=== PATIENT | male | born 1970 | race Caucasian/White ===

== ENCOUNTER 2025-05-17 20:47 | Inpatient (IN) ==
[2025-05-17] MEDS: SODIUM CHLORIDE 0.9% 1,000 ML IV STA (21:27)
[2025-05-17] MEDS: ALBUT/IPRATROP 3MG/0.5MG NEB 3 ML VIAL NEB STA (21:27)
--- NOTE | 2025-05-17 21:36 | Emergency Department Note ---
Impression & Plan NSTEMI (non-ST elevated myocardial infarction) ED Provider Note NAME: ANNABELLE DIAZ AGE: 55 SEX: M : 1970 ARRIVES VIA: Walk-In INFORMANT: Patient, ED PROVIDER(S): Daron Edward MD CHIEF COMPLAINT: Chest tightness MEDICAL DECISION MAKING: Patient presents due to concern for chest tightness. IV was established and blood work was obtained. Patient had complaint of cough the patient's initial presentation sounded infectious in etiology as the patient did receive a DuoNeb treatment as well as IV fluids. Patient's EKG without obvious ischemic changes. Patient's blood work shows a white count of 11.4 with a normal platelet count. Hemoglobin of 13.8. The patient's kidney function is unremarkable. Troponin is 7700. BioFire negative. We reviewed the patient's EKG there may be subtle changes inferiorly but not enough to call a STEMI. A repeat EKG was obtained and the patient's chest pain has improved currently 3 out of 10. Patient was ordered heparin bolus and drip as well as 324 of aspirin. I did speak with on-call outpatient services director Dr. Armando who agreed not enough to meet for STEMI criteria but does agree with heparin and aspirin. He recommended IV morphine 2 mg as well as sublingual nitro 0.4. He was given these. Upon subsequent reassessment the patient was chest pain-free. I did inform the patient of these findings as well as at bedside they are comfortable plan of care. The patient was admitted to the medicine service by Dr. Tan. Critical Care: I have personally spent 52 minutes of critical care time in direct management of this patient. This includes bedside care, interpretation of diagnostic studies, and testing, discussion with consultants, patient, and family members, and other require inpatient management activities. This 52 minutes is in excess of all separately billable procedures. Discussion w/ other healthcare providers: Dr. Armando cardiology Dr. Tan inpatient medicine service Prior /Outside records reviewed: None Differential diagnosis: Cardiac ischemia, aortic dissection, pulmonary embolism, pneumothorax, pneumonia, pericarditis, myocarditis, GERD, cholecystitis, pancreatitis, musculoskeletal, as well as other pathologies were considered. Diagnostics, as interpreted by me: ECG:Normal sinus rhythm, rate of 92, normal intervals, normal axis no ST elevations or T WI, no obvious STEMI, T wave inversion noted in lead III. Repeat EKG interpreted by myself Sinus tachycardia, rate of 101, normal intervals, normal axis, grossly unchanged from prior EKG. No obvious STEMI. Cardiac monitoring: An order was placed for continuous cardiac monitoring. The monitor shows a rate of 95 with sinus rhythm. Patient was placed on pulse oximetry Medical decision rules: Heart score Imaging studies: I informally interpreted the patient's chest x-ray does not show obvious pneumonia or pneumothorax with formal report to follow. HPI: Patient presents due to concern for chest tightness. The patient states it centralized and somewhat diffuse. The patient states that when taking a big deep breath sometimes it will radiate upward toward his neck. Patient denies any exertional component no nausea vomiting or diaphoresis. 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 The patient denies any inhalation of particulate matter. The patient states that he has had a little bit of cough but no fever no leg swelling or calf pain no history of DVT or PE. He does report that he has a history of hyperlipidemia but no prior history of heart or lung disease. Non-smoker. He denies any recent surgeries procedures or hospitalizations no recent prolonged car plane travel. PAST MEDICAL HISTORY: See Below PAST SURGICAL HISTORY: See Below SOCIAL HISTORY: See Below HOME MEDICATIONS: See Below ALLERGIES: See Below VITALS: See Below PHYSICAL EXAMINATION: GENERAL: NAD, non-toxic. EYE EXAM: Normal conjunctiva. PERRL, no anisocoria and EOM's grossly intact w/o pain. OROPHARYNX: Moist mucus membranes, grossly normal dentition. NECK: Trachea midline, no stridor. LUNGS: Clear to auscultation. Normal chest wall mechanics. HEART: NSR, no MRG. ABDOMEN: Abdomen soft, non-tender, no masses, no rebound or guarding. BACK: No CVA TTP. SKIN: No rashes and no bruising. UPPER EXTREMITIES: Upper extremities are grossly normal. LOWER EXTREMITIES: Grossly normal, no edema. Negative Homans' sign bilaterally. NEURO EXAM: Awake and alert, follows commands, no obvious facial asymmetry, normal speech, moves all 4 extremities. Past Med/Surg History Problem List (Updated 05/21/25 @ 16:13 by Daron Edward MD) Dyslipidemia, goal LDL below 70 Cardiac tamponade Pericardial effusion NSTEMI (non-ST elevated myocardial infarction) (Acute) Social History Smoking Status: Never smoker Hx Alcohol Use: No Hx Substance Use: No Preferred Language: Kinyarwanda Communication Ability: Effective Aix Administrator Required: No Beliefs That Will Affect Care: None Current Living Situation: Spouse Feels Safe at Home: Yes Assistive Devices: None Allergies Allergies Allergy/AdvReac Type Severity Reaction Status Date / Time No Known Allergies Allergy Verified 05/17/25 21:36 Home Meds Home Medications Medication Instructions Recorded Confirmed atorvastatin 20 mg tablet 20 mg PO HS 05/17/25 05/17/25 cholecalciferol (vitamin D3) 125 125 mcg PO HS 05/17/25 05/17/25 mcg (5,000 unit) tablet (Vitamin D3) levothyroxine 75 mcg tablet 75 mcg PO DAILYBB 05/17/25 05/17/25 multivitamin 1 tab PO HS 05/17/25 05/17/25 omega-3 fatty acids 1,250 mg 2,500 mg PO HS 05/17/25 05/17/25 capsule Previous Rx's Medication Instructions Recorded aspirin 325 mg tablet,delayed 325 mg PO DAILY 30 days #30 tabs 05/19/25 release (Ecotrin) colchicine 0.6 mg tablet (Colcrys) 0.6 mg PO BID 14 days #28 tabs 05/19/25 pantoprazole 40 mg tablet,delayed 40 mg PO DAILY 30 days #30 tabs 05/20/25 release (Protonix) Results & Data (ED) Vital Signs Vital Signs - 24 hr 05/17/25 20:49 05/17/25 21:13 05/17/25 21:14 Temperature 36.7 C Temperature Source Temporal Artery Scan Pulse Rate 100 H 92 H Pulse Rate [Apical] Pulse Rhythm Regular Pulse Rhythm [Apical] Pulse Strength Normal Pulse Strength [Apical] Respiratory Rate 20 Respiratory Effort / Characteristics Non-Labored Spontaneous Respiratory Depth Normal Respiratory Pattern Blood Pressure 115/86 Blood Pressure [Right Arm] Blood Pressure Mean 95 Blood Pressure Mean [Right Arm] Pulse Oximetry 97 Oxygen Delivery Method Room Air Room Air Sepsis New/Unexplained Change in Mental Status N/A Sepsis Action Taken by Nursing No Action Required 05/17/25 21:14 05/17/25 21:20 Temperature Temperature Source Pulse Rate Pulse Rate [Apical] 97 H Pulse Rhythm Pulse Rhythm [Apical] Regular Pulse Strength Pulse Strength [Apical] Normal Respiratory Rate 18 Respiratory Effort / Characteristics Non-Labored Spontaneous Respiratory Depth Normal Respiratory Pattern Regular Blood Pressure Blood Pressure [Right Arm] 116/87 Blood Pressure Mean Blood Pressure Mean [Right Arm] 96 Pulse Oximetry 98 98 Oxygen Delivery Method Room Air Room Air Sepsis New/Unexplained Change in Mental Status Sepsis Action Taken by Half-Way Medications Current Medication List: was personally reviewed by me Laboratory Data Attestation: I reviewed the patient's lab results. 05/19/25 05:38 05/19/25 05:38 Lab Results 05/17/25 05/17/25 05/17/25 Range/Units 21:05 21:19 23:05 WBC 11.42 H (4.8-10.8) K/ul RBC 4.56 L (4.70-6.10) M/uL Hgb 13.8 L (14.0-18.0) g/dl Hct 39.4 L (42.0-52.0) % MCV 86.4 (80.0-100.0) fL MCH 30.3 (25.0-34.0) pg MCHC 35.0 (32.0-36.0) g/dL RDW Std Deviation 39.7 (36.4-46.3) fL RDW Coeff of Nikia 12.6 (11.5-14.5) % Plt Count 283 (130-400) K/uL MPV 9.5 (9.4-12.4) fL Immature Gran % (Auto) 0.3 % Neut % (Auto) 59.8 % Lymph % (Auto) 26.4 % Branch % (Auto) 10.9 % Eos % (Auto) 2.3 % Baso % (Auto) 0.3 % Neut # (Auto) 6.85 H (1.40-6.50) K/uL Lymph # (Auto) 3.01 (1.20-3.40) K/uL Branch # (Auto) 1.24 H (0.11-0.59) K/uL Eos # (Auto) 0.26 (0.00-0.50) K/uL Baso # (Auto) 0.03 (0.00-0.20) K/uL Immature Gran # (Auto) 0.03 (0.01-0.20) K/uL Sodium 139 (136-145) mmol/L Potassium 3.8 (3.5-5.1) mmol/L Chloride 104 (98-107) mmol/L Carbon Dioxide 27 (21-32) mmol/L Anion Gap 8 (3-11) BUN 20 (6-23) mg/dl Creatinine 0.98 (0.6-1.4) mg/dl Est Cr Clr Drug Dosing 98.2 ml/min eGFR 91.63 BUN/Creatinine Ratio 20.4 H (10-20) Glucose 106 H (70-99(Fasting)) mg/dl Calcium 8.7 (8.6-10.3) mg/dl Total Bilirubin 0.8 (0.2-1.0) mg/dl AST 35 (13-39) U/L ALT 33 (7-52) U/L Alkaline Phosphatase 80 (34-104) U/L Troponin I High Sens 7733.8 H* 7045.3 H* (0-20) pg/ml Total Protein 7.9 (6.0-8.3) gm/dl Albumin 4.1 (3.4-5.0) gm/dl Globulin 3.8 (2.5-4.0) gm/dl Albumin/Globulin Ratio 1.1 (0.9-2) Lipase 27 (11-82) U/L Adenovirus (PCR) Not Detected (NotDetected) B. pertussis DNA (PCR) Not Detected (NotDetected) B.parapertussis DNA PCR Not Detected (NotDetected) C. pneumoniae DNA (PCR) Not Detected (NotDetected) Coronavirus OC43 (PCR) Not Detected (NotDetected) Coronavirus HKU1 (PCR) Not Detected (NotDetected) Coronavirus 229E (PCR) Not Detected (NotDetected) SARS-CoV-2 (PCR) Not Detected (NotDetected) Coronavirus NL63 (PCR) Not Detected (NotDetected) Human Metapneumovir PCR Not Detected (NotDetected) Influenza Type A (PCR) Not Detected (NotDetected) Influenza Type B (PCR) Not Detected (NotDetected) M. pneumoniae (PCR) Not Detected (NotDetected) Parainfluenza 1 (PCR) Not Detected (NotDetected) Parainfluenza 2 (PCR) Not Detected (NotDetected) Parainfluenza 3 (PCR) Not Detected (NotDetected) Parainfluenza 4 (PCR) Not Detected (NotDetected) RSV (PCR) Not Detected (NotDetected) Entero/Rhino (PCR) Not Detected (NotDetected) Administered Medications Discontinued Medications Acetaminophen (Acetaminophen 500 Mg Tab) 1,000 mg PO NOW STA Stop: 05/18/25 00:24 Last Admin: 05/18/25 00:34 Dose: 1,000 mg Documented By: PAGE Acetaminophen (Acetaminophen 325 Mg Tab) 650 mg PO Q4H PRN PRN Reason: Pain or Fever Stop: 06/17/25 01:55 Last Admin: 05/18/25 18:00 Dose: 650 mg Documented By: SABAF Albuterol (Albut/Ipratrop 3mg/0.5mg Neb 3 Ml Vial) 3 ml NEB NOW STA; Protocol Stop: 05/17/25 21:18 Last Admin: 05/17/25 21:27 Dose: 3 ml Documented By: MARITZA Aspirin (Aspirin Chew 324 Mg) 324 mg PO NOW STA Stop: 05/17/25 22:41 Last Admin: 05/17/25 22:45 Dose: 324 mg Documented By: ANANDA Aspirin (Aspirin 81 Mg Ectab) 81 mg PO DAILY SCARLETT Stop: 06/17/25 08:59 Last Admin: 05/18/25 09:12 Dose: 81 mg Documented By: ISMALE Aspirin (Aspirin 325 Mg Ectab) 325 mg PO DAILY SCARLETT Stop: 06/17/25 15:29 Last Admin: 05/19/25 09:14 Dose: 325 mg Documented By: Admin: 05/18/25 16:25 Dose: 325 mg Documented By: ISMAEL Atorvastatin Calcium (Atorvastatin 20 Mg Tab) 20 mg PO HS SCARLETT Stop: 06/17/25 20:59 Last Admin: 05/18/25 21:03 Dose: 20 mg Documented By: MARTIN Colchicine (Colchicine 0.6 Mg Tab) 0.6 mg PO BID SCARLETT Stop: 06/17/25 10:59 Last Admin: 05/19/25 09:13 Dose: 0.6 mg Documented By: Admin: 05/18/25 21:03 Dose: 0.6 mg Documented By: Admin: 05/18/25 12:17 Dose: 0.6 mg Documented By: ISMAEL Fentanyl Citrate (Fentanyl Citrate Pf 100 Mcg/2 Ml Vial) Confirm Administered Dose 100 mcg .ROUTE .STK-MED ONE Stop: 05/18/25 09:56 Last Increment: 05/18/25 10:32 Dose: 37.5 mcg Documented By: LEANA Heparin Sodium (Porcine) (Heparin Sod (Porcine) 1000 Unit/Ml) 1 units IV NOW ONE Stop: 05/17/25 22:55 Last Admin: 05/17/25 23:00 Dose: 4,000 units Documented By: MARITZA Co-signed By: ANANDA Heparin Sodium (Porcine) (Heparin (Porcine) 1000 Unit/Ml 10 Ml (Experimental Rocket Sled Mechanic Use Only)) Confirm Administered Dose 10,000 units .ROUTE .STK-MED ONE Stop: 05/18/25 09:56 Last Admin: 05/18/25 10:33 Dose: Not Given Documented By: LEANA Heparin Sodium/Dextrose (Heparin Iv Adult Wt-Based Low-Dose W/ Initial Bolus Protocol) 1 each IV NOW STA; Protocol Stop: 05/17/25 22:40 Last Admin: 05/17/25 22:48 Dose: Not Given Documented By: ANANDA Heparin Sodium/Sodium Chloride (Heparin In Nss Infusion 1000 Unit/500 Ml (2 U/Ml) Bag) Confirm Administered Dose 6,000 units IV .STK-MED ONE Stop: 05/18/25 09:48 Last Admin: 05/18/25 10:07 Dose: Not Given Documented By: LEANA Heparin Sodium/Sodium Chloride (Heparin In Nss Infusion 1000 Unit/500 Ml (2 U/Ml) Bag) Confirm Administered Dose 3,000 units IV .STK-MED ONE Stop: 05/18/25 09:56 Last Admin: 05/18/25 10:07 Dose: 3,000 units Documented By: LEANA Sodium Chloride (Nss) 1,000 mls @ 999 mls/hr IV .Q1H1M STA Stop: 05/17/25 22:17 Last Infusion: 05/17/25 22:30 Dose: Infused Documented By: Admin: 05/17/25 21:27 Dose: 999 mls/hr Documented By: MARITZA Heparin Sodium/Dextrose (Heparin 60473 Unit/500 Ml D5w) 25,000 units in 500 mls @ 19 mls/hr IV .Q24H [facility]; Protocol Stop: 06/16/25 22:59 Last Titration: 05/18/25 19:02 Dose: Infused Documented By: MARTIN Co-signed By: DASH Titration: 05/18/25 08:53 Dose: 0 units/hr, 0 mls/hr Documented By: ISMAEL Co-signed By: MARCE Titration: 05/18/25 06:52 Dose: 1,050 units/hr, 21 mls/hr Documented By: MARTIN Co-signed By: ISMAEL Admin: 05/17/25 23:02 Dose: 950 units/hr, 19 mls/hr Documented By: MARITZA Co-signed By: ANANDA Sodium Chloride (Nss) 1,000 mls @ 999 mls/hr IV .Q1H1M ONE Stop: 05/17/25 23:54 Last Infusion: 05/18/25 00:20 Dose: Infused Documented By: Admin: 05/17/25 22:58 Dose: 999 mls/hr Documented By: MARITZA Ioversol (Optiray 350) Confirm Administered Dose 1 ml .ROUTE .STK-MED ONE Stop: 05/18/25 09:57 Last Admin: 05/18/25 10:33 Dose: 80 ml Documented By: LEANA Levothyroxine Sodium (Levothyroxine Sodium 75 Mcg Tablet) 75 mcg PO DAILYBB SCARLETT Stop: 06/17/25 06:29 Last Admin: 05/19/25 06:10 Dose: 75 mcg Documented By: Admin: 05/18/25 06:45 Dose: 75 mcg Documented By: MARTIN Lidocaine HCl (Lidocaine 1% Local 20 Ml Vial) Confirm Administered Dose 40 ml .ROUTE .STK-MED ONE Stop: 05/18/25 09:47 Last Admin: 05/18/25 10:06 Dose: 40 ml Documented By: LEANA Methylprednisolone (Methylprednisolone 125 Mg/2 Ml Vial) 125 mg IV NOW STA Stop: 05/17/25 21:18 Last Admin: 05/17/25 21:31 Dose: 125 mg Documented By: MARITZA Midazolam HCl (Midazolam Hcl 1 Mg/Ml 2ml Vial) Confirm Administered Dose 2 mg .ROUTE .STK-MED ONE Stop: 05/18/25 09:56 Last Admin: 05/18/25 10:33 Dose: 2 mg Documented By: LEANA Morphine Sulfate (Morphine Sulfate 2 Mg/Ml Carp) 2 mg IV NOW STA Stop: 05/17/25 23:08 Last Admin: 05/17/25 23:38 Dose: 2 mg Documented By: PAGE Multivitamins (Multivitamin Tab) 1 tab PO HS SCARLETT Stop: 06/17/25 20:59 Last Admin: 05/18/25 21:03 Dose: 1 tab Documented By: MARTIN Nicardipine HCl (Nicardipine Hcl Inj 2.5 Mg/Ml 10 Ml Amp) Confirm Administered Dose 25 mg .ROUTE .STK-MED ONE Stop: 05/18/25 09:57 Last Admin: 05/18/25 10:08 Dose: 25 mg Documented By: LEANA Nitroglycerin (Nitroglycerin Sl 0.4 Mg/Tab Tab) 0.4 mg SL NOW STA Stop: 05/17/25 23:08 Last Admin: 05/17/25 23:38 Dose: 0.4 mg Documented By: PAGE Vitamin D (Cholecalciferol 125 Mcg (5,000 Units) Tab) 125 mcg PO HS SCARLETT Stop: 06/17/25 20:59 Last Admin: 05/18/25 21:03 Dose: 125 mcg Documented By: MARTIN Imaging Data Radiologist's Impression: Chest X-Ray 05/17/25 21:17 Exam(s): XR CXR 1 VIEW EXAM: XR Chest, 1 View CLINICAL HISTORY: Chest pain, nonspecific. TECHNIQUE: Frontal view of the chest. COMPARISON: No relevant prior studies available. FINDINGS: Lungs: No infiltrate. Hypoventilation with mild bibasilar atelectasis. No CHF. Pleural space: No pleural effusion. No pneumothorax. Heart: Unremarkable. No cardiomegaly. Mediastinum: Unremarkable. Normal mediastinal contour. Bones/joints: Unremarkable. No acute fracture. IMPRESSION: Hypoventilation with mild bibasilar atelectasis. Electronically signed by: Kirby Baum M.D. 05/18/25 00:08 AM Discharge Plan Visit Data Chief Complaint: Cardiac Assessment Stated Complaint: TIGHTNESS IN CHEST, COUGH, SOB ED Provider: Daron Edward Discharge Problem: NSTEMI (non-ST elevated myocardial infarction) Patient Disposition: Admitted As Inpatient Condition: Good Discharge Instructions Interventions: ED Discharge Assessment Last Done: 05/18/25 01:20
[2025-05-17 21:42] LABS: Hematocrit (blood only) 39.4 % (42.0-52.0); Hemoglobin 13.8 g/dl (14.0-18.0); Immature Granulocytes # (auto) 0.03 K/uL (0.01-0.20); Immature Granulocytes % (auto) 0.3 %; Mean Corpuscular Hemoglobin 30.3 pg (25.0-34.0); Mean Corpuscular Volume 86.4 fL (80.0-100.0); Platelet Count 283 K/uL (130-400); RDW Standard Deviation 39.7 fL (36.4-46.3); Red Blood Count 4.56 M/uL (4.70-6.10); White Blood Count 11.42 K/ul (4.8-10.8)
[2025-05-17 22:24] LABS: Alanine Aminotransferase 33.0 U/L (7-52); Albumin Globulin Ratio 1.1 (0.9-2); Alkaline Phosphatase 80.0 U/L (34-104); Anion Gap 8.0 (3-11); Bilirubin,Total 0.8 mg/dl (0.2-1.0); Blood Urea Nitrogen 20.0 mg/dl (6-23); Calcium 8.7 mg/dl (8.6-10.3); Carbon Dioxide 27.0 mmol/L (21-32); Chloride 104.0 mmol/L (98-107); Creatinine Clr Calc Pharmacy 98.2 ml/min; Globulin 3.8 gm/dl (2.5-4.0); Glucose 106.0 mg/dl (70-99(Fasting)); Lipase 27.0 U/L (11-82); Potassium 3.8 mmol/L (3.5-5.1); Sodium 139.0 mmol/L (136-145); Total Protein 7.9 gm/dl (6.0-8.3)
[2025-05-17 22:39] LABS: Chlamydia pneumoniae PCR Not Detected (NotDetected); Coronavirus 229E PCR Not Detected (NotDetected); Coronavirus CoV-2 (COVID19)PCR Not Detected (NotDetected); Coronavirus HKU1 PCR Not Detected (NotDetected); Coronavirus NL63 PCR Not Detected (NotDetected); Coronavirus OC43PCR Not Detected (NotDetected); Human Metapneumovirus PCR Not Detected (NotDetected); Parainfluenza Virus 1 PCR Not Detected (NotDetected); Parainfluenza Virus 2 PCR Not Detected (NotDetected); Parainfluenza Virus 3 PCR Not Detected (NotDetected); Parainfluenza Virus 4 PCR Not Detected (NotDetected); Respiratory Syncytial VirusPCR Not Detected (NotDetected); Rhinovirus/Enterovirus PCR Not Detected (NotDetected)
[2025-05-17] MEDS: ASPIRIN CHEW 324 MG PO STA (22:45)
[2025-05-17] MEDS: Heparin IV Adult Wt-Based Low-Dose w/ INITIAL Bolus Protocol IV STA (22:48)
[2025-05-17] MEDS: SODIUM CHLORIDE 0.9% 1,000 ML IV ONE (22:58)
[2025-05-17] MEDS: HEPARIN SOD (PORCINE) 1000 UNIT/ML IV ONE (23:00)
[2025-05-17] MEDS: HEPARIN 25000 UNIT/500 ML D5W 25,000 UNITS/500 ML BAG IV SCH (23:02)
[2025-05-17] MEDS: NITROGLYCERIN SL 0.4 MG/TAB TAB SL STA (23:38)
[2025-05-17] MEDS: MoRPHine SULFATE 2 MG/ML CARP IV STA (23:38)
--- NOTE | 2025-05-18 00:09 | XRay Report ---
Exam(s): XR CXR 1 VIEW EXAM: XR Chest, 1 View CLINICAL HISTORY: Chest pain, nonspecific. TECHNIQUE: Frontal view of the chest. COMPARISON: No relevant prior studies available. FINDINGS: Lungs: No infiltrate. Hypoventilation with mild bibasilar atelectasis. No CHF. Pleural space: No pleural effusion. No pneumothorax. Heart: Unremarkable. No cardiomegaly. Mediastinum: Unremarkable. Normal mediastinal contour. Bones/joints: Unremarkable. No acute fracture. IMPRESSION: Hypoventilation with mild bibasilar atelectasis. Electronically signed by: Kirby Baum M.D. 05/18/25 00:08 AM
[2025-05-18] MEDS: ACETAMINOPHEN 500 MG TAB PO STA (00:34)
--- NOTE | 2025-05-18 00:36 | History & Physical Report ---
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 Pain started yesterday afternoon. Pain located in middle of the chest. When he takes deep breath pain radiates into his throat. He had some shortness of breath on exertion. He had an episode of fluttering of the heart. Denies any nausea. No dizziness. No sweating. Pain is about 3/10 by severity. Took nitro in ER did not help the pain but caused headache. Received morphine but seems not helped much. Pain is more or less constant. On exertion he had some shortness of breath. No blurred vision. No headache. No runny nose or sore throat. Having some dry cough. Appetite is okay. No abdominal pain. Normal bowel and bladder movements. Denies any blood in the stools or black stools. Denies any hematuria. Last Wednesday had some bug bites not sure if they are ticks. Currently afebrile. Patient is from [place]. Non-ST elevated [place] Presents with chest pain. Initial troponin 7733 and repeat is [address] changes in inferior leads Received aspirin and started on IV heparin Will follow serial cardiac enzymes and echo N.p.o. Telemetry Cardiac consult for further recommendations History of hyperlipidemia Continue home statin for now Will follow lipid profile Hypothyroidism On Synthyroid Will follow TSH Impaired fasting glucose Will check HbA1c levels Recent bug bite Will check Lyme screen DVT prophylaxis On IV heparin Disposition Telemetry Full code. 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 Pain started yesterday afternoon. Pain located in middle of the chest. When he takes deep breath pain radiates into his throat. He had some shortness of breath on exertion. He had an episode of fluttering of the heart. Denies any nausea. No dizziness. No s weating. Pain is about 3/10 by severity. Took nitro in ER did not help the pain but caused headache. Received morphine but seems not helped much. Pain is more or less constant. On exertion he had some shortness of breath. No blurred vision. No headache. No runny nose or sore throat. Having some dry cough. Appetite is okay. No abdominal pain. Normal bowel and bladder movements. Denies any blood in the stools or black stools. Denies any hematuria. Last Wednesday had some bug bites not sure if they are ticks. Currently afebrile. Patient is from [place]. Past medical history as mentioned above. Past surgical history. Inguinal hernia repair. Social history. No smoking. Alcohol occasional. Family history. Father had heart valve repair. Sister had heart disease. Allergies Allergy/AdvReac Type Severity Reaction Status Date / Time No Known Allergies Allergy Verified 05/17/25 21:36 Home Medications Medication Instructions Recorded Confirmed Type atorvastatin 20 mg tablet 20 mg PO HS 05/17/25 05/17/25 History cholecalciferol (vitamin D3) 125 125 mcg PO HS 05/17/25 05/17/25 History mcg (5,000 unit) tablet (Vitamin D3) levothyroxine 75 mcg tablet 75 mcg PO DAILYBB 05/17/25 05/17/25 History multivitamin 1 tab PO HS 05/17/25 05/17/25 History omega-3 fatty acids 1,250 mg 2,500 mg PO HS 05/17/25 05/17/25 History capsule zinc acetate 50 mg (zinc) capsule 50 mg PO HS 05/17/25 05/17/25 History Past Med/Surg History Problem List (Updated 05/18/25 @ 00:41 by Jaxson Tan MD) NSTEMI (non-ST elevated myocardial infarction) Social History Smoking Status: Never smoker Hx Alcohol Use: No Hx Substance Use: No Preferred Language: Turkmen Communication Ability: Effective [employer] Artistic Director Required: No Beliefs That Will Affect Care: None Current Living Situation: Spouse Other Information That Helps Us Care for You: No Feels Safe at Home: Yes Safety Concerns: Feels Safe At This Time Assistive Devices: Glasses Review of Systems Review of Systems: All systems reviewed & are unremarkable except as noted in HPI & below Physical Exam Physical Exam: General-Not in distress Head- atraumatic Eyes- PERRL. ENT- oropharynx clear Neck- supple, no JVD. Lungs- clear to auscultation no wheezing or crackles Heart- regular rate and rhythm; no murmur, no gallop. Abdomen- normal bowel sounds, soft, nontender, no distension Extremities- no pretibial edema, no erythema seen Neuro- alert, oriented; PERRL, no facial palsy; no dysarthria; moves extremities Skin- small bug bite rash seen on right posterior leg above knee medially Results & Data Results & Data Vital Signs (Past 12 Hours) Vital Signs Temp Pulse Pulse Resp BP BP Pulse Ox 05/17/25 23:00 103 H 22 95 05/17/25 22:57 101 H 24 95 05/17/25 22:21 97 H 23 94 05/17/25 22:09 89 28 H 94 05/17/25 22:03 117/90 05/17/25 22:03 117/90 05/17/25 21:39 95 H 13 100 05/17/25 21:20 98 05/17/25 21:14 97 H 18 116/87 98 05/17/25 21:14 05/17/25 21:13 92 H 05/17/25 21:12 101 H 25 H 97 05/17/25 20:49 36.7 C 100 H 20 115/86 97 O2 Del Method 05/17/25 23:00 05/17/25 22:57 05/17/25 22:21 05/17/25 22:09 05/17/25 22:03 05/17/25 22:03 05/17/25 21:39 05/17/25 21:20 Room Air 05/17/25 21:14 Room Air 05/17/25 21:14 Room Air 05/17/25 21:13 05/17/25 21:12 05/17/25 20:49 Room Air Diagnostic Findings Laboratory Results WBC 11.42 K/ul (4.8-10.8) H 05/17/25 21:05 RBC 4.56 M/uL (4.70-6.10) L 05/17/25 21:05 Hgb 13.8 g/dl (14.0-18.0) L 05/17/25 21:05 Hct 39.4 % (42.0-52.0) L 05/17/25 21:05 MCV 86.4 fL (80.0-100.0) 05/17/25 21:05 MCH 30.3 pg (25.0-34.0) 05/17/25 21:05 MCHC 35.0 g/dL (32.0-36.0) 05/17/25 21:05 RDW Std Deviation 39.7 fL (36.4-46.3) 05/17/25 21:05 RDW Coeff of Nikia 12.6 % (11.5-14.5) 05/17/25 21:05 Plt Count 283 K/uL (130-400) 05/17/25 21:05 MPV 9.5 fL (9.4-12.4) 05/17/25 21:05 Immature Gran % (Auto) 0.3 % 05/17/25 21:05 Neut % (Auto) 59.8 % 05/17/25 21:05 Lymph % (Auto) 26.4 % 05/17/25 21:05 Rock % (Auto) 10.9 % 05/17/25 21:05 Eos % (Auto) 2.3 % 05/17/25 21:05 Baso % (Auto) 0.3 % 05/17/25 21:05 Neut # (Auto) 6.85 K/uL (1.40-6.50) H 05/17/25 21:05 Lymph # (Auto) 3.01 K/uL (1.20-3.40) 05/17/25 21:05 Rock # (Auto) 1.24 K/uL (0.11-0.59) H 05/17/25 21:05 Eos # (Auto) 0.26 K/uL (0.00-0.50) 05/17/25 21:05 Baso # (Auto) 0.03 K/uL (0.00-0.20) 05/17/25 21:05 Immature Gran # (Auto) 0.03 K/uL (0.01-0.20) 05/17/25 21:05 Sodium 139 mmol/L (136-145) 05/17/25 21:05 Potassium 3.8 mmol/L (3.5-5.1) 05/17/25 21:05 Chloride 104 mmol/L (98-107) 05/17/25 21:05 Carbon Dioxide 27 mmol/L (21-32) 05/17/25 21:05 Anion Gap 8 (3-11) 05/17/25 21:05 BUN 20 mg/dl (6-23) 05/17/25 21:05 Creatinine 0.98 mg/dl (0.6-1.4) 05/17/25 21:05 Est Cr Clr Drug Dosing 98.2 ml/min 05/17/25 21:05 eGFR 91.63 05/17/25 21:05 BUN/Creatinine Ratio 20.4 (10-20) H 05/17/25 21:05 Glucose 106 mg/dl (70-99(Fasting)) H 05/17/25 21:05 Calcium 8.7 mg/dl (8.6-10.3) 05/17/25 21:05 Total Bilirubin 0.8 mg/dl (0.2-1.0) 05/17/25 21:05 AST 35 U/L (13-39) 05/17/25 21:05 ALT 33 U/L (7-52) 05/17/25 21:05 Alkaline Phosphatase 80 U/L (34-104) 05/17/25 21:05 Troponin I High Sens 7045.3 pg/ml (0-20) H* 05/17/25 23:05 Total Protein 7.9 gm/dl (6.0-8.3) 05/17/25 21:05 Albumin 4.1 gm/dl (3.4-5.0) 05/17/25 21:05 Globulin 3.8 gm/dl (2.5-4.0) 05/17/25 21:05 Albumin/Globulin Ratio 1.1 (0.9-2) 05/17/25 21:05 Lipase 27 U/L (11-82) 05/17/25 21:05 Adenovirus (PCR) Not Detected (NotDetected) 05/17/25 21:19 B. pertussis DNA (PCR) Not Detected (NotDetected) 05/17/25 21:19 B.parapertussis DNA PCR Not Detected (NotDetected) 05/17/25 21:19 C. pneumoniae DNA (PCR) Not Detected (NotDetected) 05/17/25 21:19 Coronavirus OC43 (PCR) Not Detected (NotDetected) 05/17/25 21:19 Coronavirus HKU1 (PCR) Not Detected (NotDetected) 05/17/25 21:19 Coronavirus 229E (PCR) Not Detected (NotDetected) 05/17/25 21:19 SARS-CoV-2 (PCR) Not Detected (NotDetected) 05/17/25 21:19 Coronavirus NL63 (PCR) Not Detected (NotDetected) 05/17/25 21:19 Human Metapneumovir PCR Not Detected (NotDetected) 05/17/25 21:19 Influenza Type A (PCR) Not Detected (NotDetected) 05/17/25 21:19 Influenza Type B (PCR) Not Detected (NotDetected) 05/17/25 21:19 M. pneumoniae (PCR) Not Detected (NotDetected) 05/17/25 21:19 Parainfluenza 1 (PCR) Not Detected (NotDetected) 05/17/25 21:19 Parainfluenza 2 (PCR) Not Detected (NotDetected) 05/17/25 21:19 Parainfluenza 3 (PCR) Not Detected (NotDetected) 05/17/25 21:19 Parainfluenza 4 (PCR) Not Detected (NotDetected) 05/17/25 21:19 RSV (PCR) Not Detected (NotDetected) 05/17/25 21:19 Entero/Rhino (PCR) Not Detected (NotDetected) 05/17/25 21:19 Impressions Chest X-Ray 05/17/25 21:17 Exam(s): XR CXR 1 VIEW EXAM: XR Chest, 1 View CLINICAL HISTORY: Chest pain, nonspecific. TECHNIQUE: Frontal view of the chest. COMPARISON: No relevant prior studies available. FINDINGS: Lungs: No infiltrate. Hypoventilation with mild bibasilar atelectasis. No CHF. Pleural space: No pleural effusion. No pneumothorax. Heart: Unremarkable. No cardiomegaly. Mediastinum: Unremarkable. Normal mediastinal contour. Bones/joints: Unremarkable. No acute fracture. IMPRESSION: Hypoventilation with mild bibasilar atelectasis. Electronically signed by: Kirby Baum M.D. 05/18/25 00:08 AM ECG Additional Comments: ECG. Normal sinus rhythm with a rate of 92. ST changes in inferior leads. QTc 432. Code Status & VTE Plan VTE Prophylaxis Plan VTE Prophylaxis will be ordered: Yes
[2025-05-18] MEDS ORDERED: NITROGLYCERIN SL 0.4 MG/TAB TAB SL PRN (01:56)
[2025-05-18] MEDS ORDERED: POLYETHYLENE (MIRALAX) 17 GM PACK PO PRN (01:56)
[2025-05-18] MEDS ORDERED: MoRPHine SULFATE 2 MG/ML CARP IV PRN (01:56)
[2025-05-18 06:04] LABS: Hematocrit (blood only) 34.8 % (42.0-52.0); Hemoglobin 11.7 g/dl (14.0-18.0); Immature Granulocytes # (auto) 0.03 K/uL (0.01-0.20); Immature Granulocytes % (auto) 0.4 %; Mean Corpuscular Hemoglobin 28.8 pg (25.0-34.0); Mean Corpuscular Volume 85.7 fL (80.0-100.0); Platelet Count 226 K/uL (130-400); RDW Standard Deviation 39.0 fL (36.4-46.3); Red Blood Count 4.06 M/uL (4.70-6.10); White Blood Count 6.84 K/ul (4.8-10.8)
[2025-05-18 06:25] LABS: Anion Gap 6.0 (3-11); Blood Urea Nitrogen 18.0 mg/dl (6-23); Calcium 7.9 mg/dl (8.6-10.3); Carbon Dioxide 23.0 mmol/L (21-32); Chloride 108.0 mmol/L (98-107); Cholesterol 99.0 mg/dl (0-200); Creatinine Clr Calc Pharmacy 128.3 ml/min; Glucose 216.0 mg/dl (70-99(Fasting)); HDL Cholesterol 40.0 mg/dl; Magnesium 2.0 mg/dl (1.7-2.4); Potassium 4.1 mmol/L (3.5-5.1); Sodium 137.0 mmol/L (136-145); Triglycerides 58.0 mg/dl (0-150)
[2025-05-18 06:42] LABS: ANTI-Xa, UFH(UnfractionatedHep 0.20 IU/ml (0.3-0.7)
[2025-05-18] MEDS: LEVOTHYROXINE SODIUM 75 MCG TABLET PO SCH (06:45)
[2025-05-18 07:10] LABS: Hemoglobin A1C 6.1 % (4.5-5.6)
[2025-05-18] MEDS: ASPIRIN 81 MG ECTAB PO SCH (09:12)
[2025-05-18 09:18] LABS: Thyroid Stimulating Hormone 0.911 uIu/ml (0.300-4.500)
--- NOTE | 2025-05-18 09:21 | Cardiology Consultation ---
Date of Consultation May 18, 2025 Assessment & Plan (1) NSTEMI (non-ST elevated myocardial infarction): (2) Pericardial effusion: (3) Cardiac tamponade: (4) Dyslipidemia, goal LDL below 70: Plan 55-year-old male admitted with NSTEMI with echocardiograph evidence of post erior, lateral, inferior hypokinesis suggesting left circumflex or RCA territory ischemia. Myopericarditis is also a consideration given fevers and possible tickborne illness. Troponin is trending downward. Chest pain-free this morning. Echocardiogram also reveals a small circumferential pericardial effusion. Etiology unclear at this time however may be related to Post-[place] state or possible tickborne illness with recent exposure as noted above. Recommend left heart catheterization with coronary angiography for further assessment. Further evaluation with bedside echocardiogram and possible pericardiocentesis will be performed at time of cardiac catheterization. Case discussed with interventional cardiology. IV heparin placed on hold in anticipation of procedure. Will avoid IV vasodilators at this time due to borderline hypotension and evidence of tamponade. Jasiel Browning DO [facility] I spent a total of 80 minutes on the date of service in preparation, delivery, and documentation of the care provided to this patient, excluding any time spent in the performance of separately billed services. History of Present Illness Reason for Consultation: NSTEMI Requesting Physician: Dr. Tan Attending Physician: Yoni Nails MD History of Present Illness 55-year-old male presents to the emergency department with chest discomfort. Pain began Wednesday morning while at work. Describes a heaviness and tightness which persisted throughout the day. His discomfort waxed and waned over the next 24 hours. Noting palpitations and discomfort when exerting himself. He came to the ER for further evaluation and treatment last evening 05/17/2025. Initial troponin 7733 trending down to 1708. Echocardiogram demonstrating posterior, lateral, and inferior hypokinesis suggesting RC circumflex territory ischemic heart disease. There is a small circumferential pericardial effusion with evidence of tamponade physiology. Pain-free this a.m. Hemodynamically stable without chest pain, hypotension, or tachycardia. Telemetry reveals sinus rhythm. Allergies Allergy/AdvReac Type Severity Reaction Status Date / Time No Known Allergies Allergy Verified 05/17/25 21:36 Home Medications Medication Instructions Recorded Confirmed Type atorvastatin 20 mg tablet 20 mg PO HS 05/17/25 05/17/25 History cholecalciferol (vitamin D3) 125 125 mcg PO HS 05/17/25 05/17/25 History mcg (5,000 unit) tablet (Vitamin D3) levothyroxine 75 mcg tablet 75 mcg PO DAILYBB 05/17/25 05/17/25 History multivitamin 1 tab PO HS 05/17/25 05/17/25 History omega-3 fatty acids 1,250 mg 2,500 mg PO HS 05/17/25 05/17/25 History capsule zinc acetate 50 mg (zinc) capsule 50 mg PO HS 05/17/25 05/17/25 History Patient History Social History Smoking Status: Never smoker Hx Alcohol Use: No Hx Substance Use: No Preferred Language: Syriac Communication Ability: Effective Marketing Executive Required: No Beliefs That Will Affect Care: None Current Living Situation: Spouse Other Information That Helps Us Care for You: No Feels Safe at Home: Yes Safety Concerns: Feels Safe At This Time Assistive Devices: Glasses Review of Systems Review of Systems: All systems reviewed & are unremarkable except as noted in Subjective Physical Exam Constitutional: well nourished; no acute distress Respiratory: no respiratory distress, no labored breathing and no retractions Auscultation: no crackles, no rales, no rhonchi and no wheezes Cardiovascular: Rate/Rhythm: regular rate and regular rhythm Heart Sounds: normal S1 and normal S2; no murmur Vessels: femoral pulses present and radial pulses present; no JVD and no carotid bruit Extremities: no edema Gastrointestinal (Abdomen): Inspection/Auscultation: abdomen normal to inspection and normal bowel sounds; abdomen not distended Percussion/Palpation: abdomen soft; abdomen nontender, no guarding and abdomen not rigid Neurologic: CN's II-XI intact bilaterally and moves all extremities Results & Data Vital Signs (Past 12 Hours) Vital Signs Temp Pulse Pulse Resp BP BP Pulse Ox 05/18/25 07:52 05/18/25 07:18 36.3 C L 74 18 120/78 95 05/18/25 04:02 36.6 C 88 18 95/63 L 93 05/18/25 02:06 36.6 C 93 H 18 107/71 92 05/18/25 01:20 05/18/25 01:15 102/81 05/18/25 01:09 93 H 16 94 05/18/25 01:01 92 H 05/18/25 01:00 107/79 05/18/25 00:57 94 H 21 93 05/18/25 00:51 92 H 24 93 05/18/25 00:45 109/84 05/18/25 00:45 109/84 05/18/25 00:39 95 H 21 94 05/18/25 00:30 97 H 21 94 05/18/25 00:30 106/82 05/18/25 00:30 106/82 05/18/25 00:24 97 H 21 94 05/18/25 00:20 105/83 05/18/25 00:06 102 H 22 94 05/18/25 00:03 100 H 19 94 05/18/25 00:00 113/80 05/18/25 00:00 113/80 05/17/25 23:57 103 H 25 H 93 05/17/25 23:45 105/84 05/17/25 23:37 110/91 05/17/25 23:37 110/91 05/17/25 23:30 98 H 18 96 05/17/25 23:21 101 H 24 94 05/17/25 23:00 103 H 22 95 05/17/25 22:57 101 H 24 95 05/17/25 22:21 97 H 23 94 05/17/25 22:09 89 28 H 94 05/17/25 22:03 117/90 05/17/25 22:03 117/90 05/17/25 21:39 95 H 13 100 05/17/25 21:20 98 O2 Del Method 05/18/25 07:52 Room Air 05/18/25 07:18 Room Air 05/18/25 04:02 Room Air 05/18/25 02:06 Room Air 05/18/25 01:20 Room Air 05/18/25 01:15 05/18/25 01:09 05/18/25 01:01 05/18/25 01:00 05/18/25 00:57 05/18/25 00:51 05/18/25 00:45 05/18/25 00:45 05/18/25 00:39 05/18/25 00:30 05/18/25 00:30 05/18/25 00:30 05/18/25 00:24 05/18/25 00:20 05/18/25 00:06 05/18/25 00:03 05/18/25 00:00 05/18/25 00:00 05/17/25 23:57 05/17/25 23:45 05/17/25 23:37 05/17/25 23:37 05/17/25 23:30 05/17/25 23:21 05/17/25 23:00 05/17/25 22:57 05/17/25 22:21 05/17/25 22:09 05/17/25 22:03 05/17/25 22:03 05/17/25 21:39 05/17/25 21:20 Room Air Laboratory Results Cardiac Enzymes 05/17/25 05/17/25 05/18/25 Range/Units 21:05 23:05 05:15 AST 35 (13-39) U/L Troponin I High Sens 7733.8 H* 7045.3 H* 1708.1 H* D (0-20) pg/ml Lipids 05/18/25 Range/Units 05:15 Triglycerides 58 (0-150) mg/dl Cholesterol 99 (0-200) mg/dl HDL Cholesterol 40 mg/dl Cholesterol/HDL Ratio 2.5 (0-5) CBC 05/17/25 05/18/25 Range/Units 21:05 05:15 WBC 11.42 H 6.84 (4.8-10.8) K/ul RBC 4.56 L 4.06 L (4.70-6.10) M/uL Hgb 13.8 L 11.7 L (14.0-18.0) g/dl Hct 39.4 L 34.8 L (42.0-52.0) % Plt Count 283 226 (130-400) K/uL Neut # (Auto) 6.85 H 5.53 (1.40-6.50) K/uL Lymph # (Auto) 3.01 1.16 L (1.20-3.40) K/uL [place] # (Auto) 1.24 H 0.10 L (0.11-0.59) K/uL Eos # (Auto) 0.26 0.02 (0.00-0.50) K/uL Baso # (Auto) 0.03 0.00 (0.00-0.20) K/uL Comprehensive Metabolic Panel 05/17/25 05/18/25 Range/Units 21:05 05:15 Sodium 139 137 (136-145) mmol/L Potassium 3.8 4.1 (3.5-5.1) mmol/L Chloride 104 108 H (98-107) mmol/L Carbon Dioxide 27 23 (21-32) mmol/L BUN 20 18 (6-23) mg/dl Creatinine 0.98 0.75 (0.6-1.4) mg/dl Glucose 106 H 216 H (70-99(Fasting)) mg/dl Calcium 8.7 7.9 L (8.6-10.3) mg/dl AST 35 (13-39) U/L ALT 33 (7-52) U/L Alkaline Phosphatase 80 (34-104) U/L Total Protein 7.9 (6.0-8.3) gm/dl Albumin 4.1 (3.4-5.0) gm/dl Intake and Output 05/17/25 05/18/25 05/18/25 22:59 06:59 14:59 Intake Total 1000 / 2148.833 1148.833 / 2148.833 42.35 / 42.35 Balance 1000 / 2148.833 1148.833 / 2148.833 42.35 / 42.35 Intake: IV 1000 / 2148.833 1148.833 / 2148.833 42.35 / 42.35 Heparin 71944 Unit/500 ml D5w 148.833 / 148.833 42.35 / 42.35 25,000 units In 500 ml @ 950 UNITS/HR 19 mls/hr IV .Q24H [facility] Rx#:[id number] Sodium Chloride 0.9% 1,000 ml @ 1000 / 2000 1000 / 2000 999 mls/hr IV .Q1H1M ONE Rx#: [id number] Other: Other Intake Source npo Weight 91.9 kg 91.9 kg Weight Measurement Method Built in [facility] Care Time/CCT Total # of Minutes Spent Total Time Spent with Patient: Total time spent is greater than 50% in coordination of care (as documented) at patient's floor/unit and/or counseling patient: Coding Level of Care Code 47368 IN/OBS CONSULT LVL 5,80M Diagnoses NSTEMI (non-ST elevated myocardial infarction) I21.4 Pericardial effusion I31.39 Cardiac tamponade I31.4 Dyslipidemia, goal LDL below 70 E78.5
--- NOTE | 2025-05-18 09:23 | Pre Anesthesia Assessment ---
Date of Service May 18, 2025 Pre Sedation Assessment Vital Signs Temp Pulse Pulse Pulse Resp BP BP 05/18/25 09:31 36.7 C 95 H 18 132/96 05/18/25 07:52 05/18/25 07:18 36.3 C L 74 18 120/78 05/18/25 04:02 36.6 C 88 18 95/63 L 05/18/25 02:06 36.6 C 93 H 18 107/71 05/18/25 01:20 05/18/25 01:15 102/81 05/18/25 01:09 93 H 16 05/18/25 01:01 92 H 05/18/25 01:00 107/79 05/18/25 00:57 94 H 21 05/18/25 00:51 92 H 24 05/18/25 00:45 109/84 05/18/25 00:45 109/84 05/18/25 00:39 95 H 21 05/18/25 00:30 97 H 21 05/18/25 00:30 106/82 05/18/25 00:30 106/82 05/18/25 00:24 97 H 21 05/18/25 00:20 105/83 05/18/25 00:06 102 H 22 05/18/25 00:03 100 H 19 05/18/25 00:00 113/80 05/18/25 00:00 113/80 05/17/25 23:57 103 H 25 H 05/17/25 23:45 105/84 05/17/25 23:37 110/91 05/17/25 23:37 110/91 05/17/25 23:30 98 H 18 05/17/25 23:21 101 H 24 05/17/25 23:00 103 H 22 05/17/25 22:57 101 H 24 05/17/25 22:21 97 H 23 05/17/25 22:09 89 28 H 05/17/25 22:03 117/90 05/17/25 22:03 117/90 05/17/25 21:39 95 H 13 05/17/25 21:20 05/17/25 21:14 97 H 18 116/87 05/17/25 21:14 05/17/25 21:13 92 H 05/17/25 21:12 101 H 25 H 05/17/25 20:49 36.7 C 100 H 20 115/86 Pulse Ox O2 Del Method 05/18/25 09:31 97 Room Air 05/18/25 07:52 Room Air 05/18/25 07:18 95 Room Air 05/18/25 04:02 93 Room Air 05/18/25 02:06 92 Room Air 05/18/25 01:20 Room Air 05/18/25 01:15 05/18/25 01:09 94 05/18/25 01:01 05/18/25 01:00 05/18/25 00:57 93 05/18/25 00:51 93 05/18/25 00:45 05/18/25 00:45 05/18/25 00:39 94 05/18/25 00:30 94 05/18/25 00:30 05/18/25 00:30 05/18/25 00:24 94 05/18/25 00:20 05/18/25 00:06 94 05/18/25 00:03 94 05/18/25 00:00 05/18/25 00:00 05/17/25 23:57 93 05/17/25 23:45 05/17/25 23:37 05/17/25 23:37 05/17/25 23:30 96 05/17/25 23:21 94 05/17/25 23:00 95 05/17/25 22:57 95 05/17/25 22:21 94 05/17/25 22:09 94 05/17/25 22:03 05/17/25 22:03 05/17/25 21:39 100 05/17/25 21:20 98 Room Air 05/17/25 21:14 98 Room Air 05/17/25 21:14 Room Air 05/17/25 21:13 05/17/25 21:12 97 05/17/25 20:49 97 Room Air Cardiovascular + regular rate and + regular rhythm + S1 normal and + S2 normal; no murmur no JVD and no carotid bruit no edema Respiratory + respiratory effort normal; no respiratory distress, no labored breathing and no retractions no crackles, no rales, no rhonchi and no wheezes Pre-Sedation Airway Assessment Smoking Status: Never smoker Hx Sleep Apnea: No Hx Difficult Intubation: No Short, Thick Neck: No Thyromental Distance: < 3.5 Finger Breadths Oral Cavity: + WNL Mallampati Class: II ASA: ASA4 NPO Status Date of Last Intake of Fluids: 05/17/25 Date of Last Intake of Solid Food: 05/17/25 Procedure Planning Contraindications for Sedation: none Current Medications Reviewed: No Notes The planned sedation has been discussed with the patient. Informed Consent was obtained. I have identified the patient, determined the appropriateness of sedation and have assessed the patient immediately prior to the procedure. All medicine(s) and interventions are by my order.
[2025-05-18] MEDS: LIDOCAINE 1% LOCAL 20 ML VIAL ONE (10:06)
[2025-05-18] MEDS: OPTIRAY 350 ONE (10:33)
[2025-05-18] MEDS: MIDAZOLAM HCL 1 MG/ML 2ML VIAL ONE (10:33)
[2025-05-18] MEDS: HEPARIN (PORCINE) 1000 UNIT/ML 10 ML (CATH LAB USE ONLY) ONE (10:33)
--- NOTE | 2025-05-18 11:04 | Post Anesthesia Assessment ---
Date of Service May 18, 2025 Post Sedation Assessment Vital Signs Temp Pulse Pulse Pulse Resp BP BP 05/18/25 10:50 83 18 140/103 H 05/18/25 09:31 36.7 C 95 H 18 05/18/25 07:52 05/18/25 07:18 36.3 C L 74 18 05/18/25 04:02 36.6 C 88 18 05/18/25 02:06 36.6 C 93 H 18 05/18/25 01:20 05/18/25 01:15 102/81 05/18/25 01:09 93 H 16 05/18/25 01:01 92 H 05/18/25 01:00 107/79 05/18/25 00:57 94 H 21 05/18/25 00:51 92 H 24 05/18/25 00:45 109/84 05/18/25 00:45 109/84 05/18/25 00:39 95 H 05/18/25 00:30 97 H 21 05/18/25 00:30 106/82 05/18/25 00:30 106/82 05/18/25 00:24 97 H 05/18/25 00:20 105/83 05/18/25 00:06 102 H 22 05/18/25 00:03 100 H 19 05/18/25 00:00 113/80 05/18/25 00:00 113/80 05/17/25 23:57 103 H 25 H 05/17/25 23:45 105/84 05/17/25 23:37 110/91 05/17/25 23:37 110/91 05/17/25 23:30 98 H 18 05/17/25 23:21 101 H 24 05/17/25 23:00 103 H 22 05/17/25 22:57 101 H 24 05/17/25 22:21 97 H 23 05/17/25 22:09 89 28 H 05/17/25 22:03 117/90 05/17/25 22:03 117/90 05/17/25 21:39 95 H 13 05/17/25 21:20 05/17/25 21:14 97 H 18 05/17/25 21:14 05/17/25 21:13 92 H 05/17/25 21:12 101 H 25 H 05/17/25 20:49 36.7 C 100 H 20 115/86 BP Pulse Ox O2 Del Method 05/18/25 10:50 94 Room Air 05/18/25 09:31 132/96 97 Room Air 05/18/25 07:52 Room Air 05/18/25 07:18 120/78 95 Room Air 05/18/25 04:02 95/63 L 93 Room Air 05/18/25 02:06 107/71 92 Room Air 05/18/25 01:20 Room Air 05/18/25 01:15 05/18/25 01:09 94 05/18/25 01:01 05/18/25 01:00 05/18/25 00:57 93 05/18/25 00:51 93 05/18/25 00:45 05/18/25 00:45 05/18/25 00:39 94 05/18/25 00:30 94 05/18/25 00:30 05/18/25 00:30 05/18/25 00:24 94 05/18/25 00:20 05/18/25 00:06 94 05/18/25 00:03 94 05/18/25 00:00 05/18/25 00:00 05/17/25 23:57 93 05/17/25 23:45 05/17/25 23:37 05/17/25 23:37 05/17/25 23:30 96 05/17/25 23:21 94 05/17/25 23:00 95 05/17/25 22:57 95 05/17/25 22:21 94 05/17/25 22:09 94 05/17/25 22:03 05/17/25 22:03 05/17/25 21:39 100 05/17/25 21:20 98 Room Air 05/17/25 21:14 116/87 98 Room Air 05/17/25 21:14 Room Air 05/17/25 21:13 05/17/25 21:12 97 05/17/25 20:49 97 Room Air Recovery Score Activity: Moves 4 extremities Respiration: Deep Breath/Cough Circulation: +/-20% PreAnes Value Consciousness: Fully Awake Oxygen Saturation: > 92% On Room Air Post Anesthesia Score: 10 Discharge Sedation Level of Care: Fast Track Phase II Post Sedation Plan On clinical assessment, the patient appears to have tolerated the sedation without complications. Patient is recovering as anticipated. Patient will continue to be monitored by nursing and may be discharged when sedation discharge criteria are met per below protocol. Upon Completions of procedure up to 15 minutes continue every 5 minute vital signs and the P.A.R. score; then discharge to a Phase I or Fast Track to Phase II per the following guidelines: * Discharge Patient to appropriate Phase II area if PAR is 8 or greater or return to pre- procedure baseline. The post - procedure orders will be as directed. * If PAR score is less than 8 or not return to pre-procedure baseline then patient will follow Phase I monitoring till PAR is reached for Phase II. The Phase I may be done in procedure room or may call to secure a Phase I area. * If naloxone or flumazenil are used for reversal, hold in Phase I for continued monitoring from when last reversal dose was given for a minimum of 60 minutes or longer pending the nurse and/or physician discretion of patient condition before discharge to Phase II. Please call the Sedation Physician to re-evaluate and complete post-note for discharge to Phase II area. Do NOT discharge from procedure sedation or Phase 1 until post- sedation evaluation note is complete by procedure /sedation MD Sedation Discharge Instructions to be given to the patient at discharge to home.
--- NOTE | 2025-05-18 11:11 | Cardiac Catheterization ---
ACC Data: Animal Keeper Cardiac Status Clinical evaluation leading to the procedure 55-year-old male present to the emergency department approximately 48 hours after onset of chest discomfort. Discomfort waxing and waning over that time with a exertional component. Notes episode of fever and chills approximately 5 days prior to presentation with possible tick bite. Echocardiogram with posterior hypokinesis and preserved LV systolic function. Small circumferential pericardial effusion with evidence of tamponade physiology. CAD Presenation: Non STEMI Anginal Classification: CCS IV Heart Failure: No STEMI OR Non-STEMI Symptom Onset Date: 05/16/25 Symptom Onset Time: 09:00 Thrombolytics: No Coronary Anatomy Dominant: Right Left Main (% Stenosis): Normal LAD (% Stenosis): Normal D1 (% Stenosis): Normal D2 (% Stenosis): Normal D3 (% Stenosis): Normal Circumflex (% Stenosis): Mid (Subtotal occlusion with small vessel distally. Minimal left to left and right to left collaterals) OM1 (% Stenosis): Distal (10% Large vessel) RCA (% Stenosis): Normal R PDA (% Stenosis): Distal (10%) R PL1 (% Stenosis): Normal Diagnostic Physicians Name: Jasiel Browning DO Closure Device Percutaneous Entry Location: Radial Closure Device: Radial Band Recommendations: Management Recommendatons (Medical management of small circumflex subtotal occlusion. Reviewed with interventional cardiology. Vessel too small for stenting. Findings suggest probable myopericarditis with small to moderate pericardial effusion. Bedside ultrasound performed to consider pericardiocentesis post angiography.) Intraprocedure Events Significant Disection: No Perforation: No Cardiac Cath Procedure Full Procedure Date May 18, 2025 Pre-Procedure Diagnosis Pre-Procedure Diagnosis: Non STEMI and Cardiomyopathy AUC Score AUC Score: 8 Post-Procedure Diagnosis Post-Procedure Diagnosis: Moderate CAD and Elevated Intracardiac Pressures Procedure(s) Performed Procedure(s) Performed: Coronary Angiography and Left Heart Cath Kickboxing Instructor Jasiel Browning DO Voip Technician(s) Santino QUALITY CONSULTANT Estimated Blood Loss Estimated Blood Loss: 5cc Medication(s) Medication(s): Fentanyl, Lidocaine 1% and Versed Summary of Findings Mid circumflex is a small vessel and appears to be subtotally occluded near the origin of a large obtuse marginal branch vessel. Otherwise, minimal nonobstructive CAD noted. Hemodynamics Rest Ao:: 130/77/126 Final Ao: 116/88/102 LV: 108/23/25 Recommendations Recommendations: Management Recommendatons (Medical management of small circumflex subtotal occlusion. Reviewed with interventional cardiology. Vessel too small for stenting. Findings suggest probable myopericarditis with small to moderate pericardial effusion. Bedside ultrasound performed to consider pericardiocentesis post angiography.) Specimens Specimens: None Radiation Exposure (mGy) 421 Contrast (mls) 80 Fluids (cc crystalloids) Fluids (cc crystalloids): 0cc Drains Drains: N/A Anesthesia Moderate sedation. Start 1013. End 1045. Sedation monitor: Dione ELLIS Procedural Complication(s) None Disposition Animal Keeper Holding/Recovery I attest to the content of the Intraoperative Record and any orders documented therein. Any exceptions are noted below. [facility] Card Cath Procedure Codes Cardiac Catheterization Procedure 1: Cardiovascular Cath Procedures: 17368 Coronaries and LHC (+/-LV) Moderate Sedation Procedure 1: Sedation/Anesthesia: 74085 Mod Sedation by the same physician;Init15 Min Child Age 5 & Up Procedure 2: Sedation/Anesthesia: 63985 Mod Sedation by the same physician; Ea [id number] Minutes PG Care Time/CCT Total # of Minutes Spent Total Time Spent with Patient: Total time spent is greater than 50% in coordination of care (as documented) at patient's floor/unit and/or counseling patient:
[2025-05-18] MEDS: COLCHICINE 0.6 MG TAB PO SCH (12:17)
--- NOTE | 2025-05-18 13:42 | Communication Note ---
Patient reviewed upon taking over of patients care this morning. Patient presenting with substernal chest pain, a troponin of 7000, and my personal review of the EKG showing ST elevation changes in inferior and lateral leads. Upon reviewing ECG, this provider sent message to cardiology team who did bedside echo with concern for cardiac tamponade. Sent for cardiac catheterization this morning with finding of circumflex with occlusion, otherwise moderate CAD and elevated pressures. Findings consistent with myopericarditis. Consideration for pericardial drain placement give tamponade physiology noted on echo and cardiac cath findings. Date of Service: May 18, 2025
[2025-05-18] MEDS ORDERED: MoRPHine SULFATE 10 MG/0.5 ML UDP PO PRN (16:09)
[2025-05-18] MEDS: ASPIRIN 325 MG ECTAB PO SCH (16:25)
[2025-05-18] MEDS: ACETAMINOPHEN 325 MG TAB PO PRN (18:00)
[2025-05-18 19:59] VITALS: RESP 18
[2025-05-18] MEDS: MULTIVITAMIN TAB PO SCH (21:03)
[2025-05-18] MEDS: CHOLECALCIFEROL 125 MCG (5,000 UNITS) TAB PO SCH (21:03)
[2025-05-18] MEDS: ATORVASTATIN 20 MG TAB PO SCH (21:03)
[2025-05-19 04:40] VITALS: TEMP 97.3
--- NOTE | 2025-05-19 05:42 | Electrocardiogram Report ---
Test Reason : Blood Pressure : */* mmHG Vent. Rate : 82 BPM Atrial Rate : 82 BPM P-R Int : 164 ms QRS Dur : 94 ms QT Int : 394 ms P-R-T Axes : 48 5 14 degrees QTcB Int : 460 ms Normal sinus rhythm Possible Inferior infarct (cited on or before 17-May-2025) Abnormal ECG When compared with ECG of 17-May-2025 22:44, No significant change was found Confirmed by Chaparro Cali ([id number]) on 05/19/2025 5:42:34 AM Referred By: REFERRED SELF Confirmed By: Chaparro Cali
--- NOTE | 2025-05-19 05:42 | Electrocardiogram Report ---
Test Reason : Blood Pressure : */* mmHG Vent. Rate : 101 BPM Atrial Rate : 101 BPM P-R Int : 150 ms QRS Dur : 82 ms QT Int : 352 ms P-R-T Axes : 46 0 1 degrees QTcB Int : 456 ms Sinus tachycardia Inferior infarct (cited on or before 17-May-2025) Abnormal ECG When compared with ECG of 17-May-2025 20:57, No significant change was found Confirmed by Chaparro Cali ([id number]) on 05/19/2025 5:42:22 AM Referred By: REFERRED SELF Confirmed By: Chaparro Cali
--- NOTE | 2025-05-19 05:42 | Electrocardiogram Report ---
Test Reason : Blood Pressure : */* mmHG Vent. Rate : 92 BPM Atrial Rate : 92 BPM P-R Int : 154 ms QRS Dur : 84 ms QT Int : 350 ms P-R-T Axes : 49 -1 0 degrees QTcB Int : 432 ms Normal sinus rhythm Inferior infarct , age undetermined Abnormal ECG No previous ECGs available Confirmed by Chaparro Cali ([id number]) on 05/19/2025 5:42:10 AM Referred By: Confirmed By: Chaparro Cali
[2025-05-19 06:20] LABS: Hematocrit (blood only) 34.4 % (42.0-52.0); Hemoglobin 11.5 g/dl (14.0-18.0); Mean Corpuscular Hemoglobin 28.4 pg (25.0-34.0); Mean Corpuscular Volume 84.9 fL (80.0-100.0); Platelet Count 250 K/uL (130-400); RDW Standard Deviation 38.7 fL (36.4-46.3); Red Blood Count 4.05 M/uL (4.70-6.10); White Blood Count 10.44 K/ul (4.8-10.8)
[2025-05-19 06:54] LABS: Alanine Aminotransferase 27.0 U/L (7-52); Albumin Globulin Ratio 1.1 (0.9-2); Alkaline Phosphatase 63.0 U/L (34-104); Anion Gap 5.0 (3-11); Bilirubin,Total 0.6 mg/dl (0.2-1.0); Blood Urea Nitrogen 18.0 mg/dl (6-23); Calcium 8.1 mg/dl (8.6-10.3); Carbon Dioxide 25.0 mmol/L (21-32); Chloride 109.0 mmol/L (98-107); Creatinine Clr Calc Pharmacy 137.3 ml/min; Globulin 3.0 gm/dl (2.5-4.0); Glucose 126.0 mg/dl (70-99(Fasting)); Magnesium 2.2 mg/dl (1.7-2.4); Potassium 4.1 mmol/L (3.5-5.1); Sodium 139.0 mmol/L (136-145); Total Protein 6.4 gm/dl (6.0-8.3)
[2025-05-19 11:53] VITALS: O2SAT 97
--- NOTE | 2025-05-19 12:49 | Cardiology Progress Note ---
<Statement entered by Ciara Hunter, DO - 05/19/25 15:37> I have reviewed the advanced practitioner's documentation and agree with the plan of care. I accept the responsibility for the associated risk. Pt seen in cardiology follow up due to pericardial effusion and presumed myocarditisis he has been ambulating the halls and is feeling well his repeat echo reveals the effusion has not changed in size and there is still no inflow respiratory variation across the MV and TV; the IVC did on todays echo look to be more prominent but this could be due to different angles of the imaging. he is ok for discharge home today will continue colchocine and ASA I will arrange for him to have a repeat echo and office visit this upcoming tuesday 05/22 I discussed the case and my recommendations with the hospitalist over the phone and he agreed with my plan My nurse practitioner and I together spent a total of [60] minutes coordinating, documenting, and providing care for this patient excluding time spent in the performance of separately billed services or time spent by another provider/QHP. Date of Service May 19, 2025 Assessment & Plan (1) NSTEMI (non-ST elevated myocardial infarction): (2) Pericardial effusion: (3) Cardiac tamponade: (4) Dyslipidemia, goal LDL below 70: Plan -HR and BP well controlled -mild nonobstructive dx noted on cardiac cath -echo repeated today -Lyme screen negative -continue colchicine, ASA, and atorvastatin -SB on telemetry, would not start BB at this time -BP also well controlled with echo findings would not use vasodilators at this time either -remains asymptomatic, stable for discharge -will coordinate close outpatient follow up with repeat echo on Wednesday -discussed plan with the patient and his family who were agreeable to the plan Case discussed with Dr. Hunter. Please see attestation for additional recommendations. JUDITH Addison Department of Cardiology, [facility] This chart was completed in part utilizing Speech Voice Recognition Software. Grammatical errors, random word insertions, pronoun errors, and incomplete sentences are an occasional consequence of this system due to software limitations, ambient noise, and hardware issues. Any formal questions or concerns about the content, text, or information contained within the body of this dictation should be directly addressed to the provider for clarification. Admission and Anticipated Discharge Date Admission Date: May 18, 2025 Subjective 55 year old male seen in cardiology follow up in regard to NSTEMI With myopericarditis. He is symptomatically feeling better. No longer having chest pain. Review of Systems Review of Systems: All systems reviewed & are unremarkable except as noted in HPI & below Physical Exam Constitutional: WD/WN, vitals as above well developed and well nourished; no acute distress Eyes: PERRL, conjunctivae normal, anicteric sclerae ENMT: external ear and nose normal, oropharynx normal Neck: trachea midline, no thyromegaly Respiratory: normal respiratory effort, lungs clear to auscultation Cardiovascular: Rate/Rhythm: regular rate and regular rhythm Heart Sounds: normal S1 and normal S2; no murmur Gastrointestinal (Abdomen): normal bowel sounds, soft, nontender, no hepatosplenomegaly Musculoskeletal: no cyanosis or clubbing, extremities motor strength 5/5 Skin: no rashes, warm and dry Psychiatric: A+Ox3, euthymic affect Results & Data Vital Signs (Past 12 Hours) Vital Signs Temp Pulse Pulse Resp BP Pulse Ox O2 Del Method 05/19/25 11:53 36.3 C L 55 L 18 129/87 97 Room Air 05/19/25 08:04 36.3 C L 66 18 125/75 94 Room Air 05/19/25 04:34 72 05/19/25 04:00 36.3 C L 65 18 110/75 96 Room Air Laboratory Results Cardiac Enzymes 05/18/25 05/18/25 05/19/25 Range/Units 12:43 16:44 05:38 AST 17 (13-39) U/L Troponin I High Sens 927.0 H* D 757.4 H* (0-20) pg/ml B-Natriuretic Peptide 174 H (0-100) pg/ml Coagulation 05/18/25 Range/Units 12:43 B-Natriuretic Peptide 174 H (0-100) pg/ml CBC 05/19/25 Range/Units 05:38 WBC 10.44 (4.8-10.8) K/ul RBC 4.05 L (4.70-6.10) M/uL Hgb 11.5 L (14.0-18.0) g/dl Hct 34.4 L (42.0-52.0) % Plt Count 250 (130-400) K/uL Comprehensive Metabolic Panel 05/19/25 Range/Units 05:38 Sodium 139 (136-145) mmol/L Potassium 4.1 (3.5-5.1) mmol/L Chloride 109 H (98-107) mmol/L Carbon Dioxide 25 (21-32) mmol/L BUN 18 (6-23) mg/dl Creatinine 0.70 (0.6-1.4) mg/dl Glucose 126 H (70-99(Fasting)) mg/dl Calcium 8.1 L (8.6-10.3) mg/dl AST 17 (13-39) U/L ALT 27 (7-52) U/L Alkaline Phosphatase 63 (34-104) U/L Total Protein 6.4 (6.0-8.3) gm/dl Albumin 3.4 (3.4-5.0) gm/dl Intake and Output 05/18/25 05/19/25 05/19/25 22:59 06:59 14:59 Intake Total 200 / 802.35 Balance 200 / 802.35 Intake: IV 0 .35 Heparin 85145 Unit/500 ml D5w 0 .35 25,000 units In 500 ml @ 950 UNITS/HR 19 mls/hr IV .Q24H SCARLETT Rx#:[id number] Oral 200 / 760 Other: # Unmeasured Voids 1 1 Weight 91.7 kg Weight Measurement Method Built in [facility] Diagnostic Findings Laboratory Results WBC 10.44 K/ul (4.8-10.8) 05/19/25 05:38 RBC 4.05 M/uL (4.70-6.10) L 05/19/25 05:38 Hgb 11.5 g/dl (14.0-18.0) L 05/19/25 05:38 Hct 34.4 % (42.0-52.0) L 05/19/25 05:38 MCV 84.9 fL (80.0-100.0) 05/19/25 05:38 MCH 28.4 pg (25.0-34.0) 05/19/25 05:38 MCHC 33.4 g/dL (32.0-36.0) 05/19/25 05:38 RDW Std Deviation 38.7 fL (36.4-46.3) 05/19/25 05:38 RDW Coeff of Nikia 12.7 % (11.5-14.5) 05/19/25 05:38 Plt Count 250 K/uL (130-400) 05/19/25 05:38 MPV 9.2 fL (9.4-12.4) L 05/19/25 05:38 Immature Gran % (Auto) 0.4 % 05/18/25 05:15 Neut % (Auto) 80.8 % 05/18/25 05:15 Lymph % (Auto) 17.0 % 05/18/25 05:15 Allen % (Auto) 1.5 % 05/18/25 05:15 Eos % (Auto) 0.3 % 05/18/25 05:15 Baso % (Auto) 0.0 % 05/18/25 05:15 Neut # (Auto) 5.53 K/uL (1.40-6.50) 05/18/25 05:15 Lymph # (Auto) 1.16 K/uL (1.20-3.40) L 05/18/25 05:15 Allen # (Auto) 0.10 K/uL (0.11-0.59) L 05/18/25 05:15 Eos # (Auto) 0.02 K/uL (0.00-0.50) 05/18/25 05:15 Baso # (Auto) 0.00 K/uL (0.00-0.20) 05/18/25 05:15 Immature Gran # (Auto) 0.03 K/uL (0.01-0.20) 05/18/25 05:15 ESR 39 mm/hr (0-20) H 05/18/25 12:43 Heparin Anti-Xa, Unfract 0.20 IU/ml (0.3-0.7) L 05/18/25 05:15 Sodium 139 mmol/L (136-145) 05/19/25 05:38 Potassium 4.1 mmol/L (3.5-5.1) 05/19/25 05:38 Chloride 109 mmol/L (98-107) H 05/19/25 05:38 Carbon Dioxide 25 mmol/L (21-32) 05/19/25 05:38 Anion Gap 5 (3-11) 05/19/25 05:38 BUN 18 mg/dl (6-23) 05/19/25 05:38 Creatinine 0.70 mg/dl (0.6-1.4) 05/19/25 05:38 Est Cr Clr Drug Dosing 137.3 ml/min 05/19/25 05:38 eGFR 109.50 05/19/25 05:38 BUN/Creatinine Ratio 25.7 (10-20) H 05/19/25 05:38 Glucose 126 mg/dl (70-99(Fasting)) H 05/19/25 05:38 Estimat Average Glucose 128 mg/dl 05/18/25 05:15 Hemoglobin A1c 6.1 % (4.5-5.6) H 05/18/25 05:15 Calcium 8.1 mg/dl (8.6-10.3) L 05/19/25 05:38 Phosphorus 2.5 mg/dl (2.5-4.9) 05/19/25 05:38 Magnesium 2.2 mg/dl (1.7-2.4) 05/19/25 05:38 Total Bilirubin 0.6 mg/dl (0.2-1.0) 05/19/25 05:38 AST 17 U/L (13-39) 05/19/25 05:38 ALT 27 U/L (7-52) 05/19/25 05:38 Alkaline Phosphatase 63 U/L (34-104) 05/19/25 05:38 Troponin I High Sens 757.4 pg/ml (0-20) H* 05/18/25 16:44 C-Reactive Protein 1.27 mg/dl (0-0.5) H 05/18/25 12:43 B-Natriuretic Peptide 174 pg/ml (0-100) H 05/18/25 12:43 Total Protein 6.4 gm/dl (6.0-8.3) 05/19/25 05:38 Albumin 3.4 gm/dl (3.4-5.0) 05/19/25 05:38 Globulin 3.0 gm/dl (2.5-4.0) 05/19/25 05:38 Albumin/Globulin Ratio 1.1 (0.9-2) 05/19/25 05:38 Triglycerides 58 mg/dl (0-150) 05/18/25 05:15 Cholesterol 99 mg/dl (0-200) 05/18/25 05:15 LDL Cholesterol, Calc 47 mg/dl 05/18/25 05:15 VLDL Cholesterol, Calc 12 mg/dl (0-30) 05/18/25 05:15 HDL Cholesterol 40 mg/dl 05/18/25 05:15 Cholesterol/HDL Ratio 2.5 (0-5) 05/18/25 05:15 Lipase 27 U/L (11-82) 05/17/25 21:05 TSH 0.911 uIu/ml (0.300-4.500) 05/18/25 05:15 Adenovirus (PCR) Not Detected (NotDetected) 05/17/25 21:19 B. pertussis DNA (PCR) Not Detected (NotDetected) 05/17/25 21:19 B.parapertussis DNA PCR Not Detected (NotDetected) 05/17/25 21:19 Lyme Disease Screen Negative (Negative) 05/18/25 05:15 C. pneumoniae DNA (PCR) Not Detected (NotDetected) 05/17/25 21:19 Coronavirus OC43 (PCR) Not Detected (NotDetected) 05/17/25 21:19 Coronavirus HKU1 (PCR) Not Detected (NotDetected) 05/17/25 21:19 Coronavirus 229E (PCR) Not Detected (NotDetected) 05/17/25 21:19 SARS-CoV-2 (PCR) Not Detected (NotDetected) 05/17/25 21:19 Coronavirus NL63 (PCR) Not Detected (NotDetected) 05/17/25 21:19 Human Metapneumovir PCR Not Detected (NotDetected) 05/17/25 21:19 Influenza Type A (PCR) Not Detected (NotDetected) 05/17/25 21:19 Influenza Type B (PCR) Not Detected (NotDetected) 05/17/25 21:19 M. pneumoniae (PCR) Not Detected (NotDetected) 05/17/25 21:19 Parainfluenza 1 (PCR) Not Detected (NotDetected) 05/17/25 21:19 Parainfluenza 2 (PCR) Not Detected (NotDetected) 05/17/25 21:19 Parainfluenza 3 (PCR) Not Detected (NotDetected) 05/17/25 21:19 Parainfluenza 4 (PCR) Not Detected (NotDetected) 05/17/25 21:19 RSV (PCR) Not Detected (NotDetected) 05/17/25 21:19 Entero/Rhino (PCR) Not Detected (NotDetected) 05/17/25 21:19 Impressions Chest X-Ray 05/17/25 21:17 Exam(s): XR CXR 1 VIEW EXAM: XR Chest, 1 View CLINICAL HISTORY: Chest pain, nonspecific. TECHNIQUE: Frontal view of the chest. COMPARISON: No relevant prior studies available. FINDINGS: Lungs: No infiltrate. Hypoventilation with mild bibasilar atelectasis. No CHF. Pleural space: No pleural effusion. No pneumothorax. Heart: Unremarkable. No cardiomegaly. Mediastinum: Unremarkable. Normal mediastinal contour. Bones/joints: Unremarkable. No acute fracture. IMPRESSION: Hypoventilation with mild bibasilar atelectasis. Electronically signed by: Kirby Baum M.D. 05/18/25 00:08 AM Medications Administered Current Inpatient Medications Acetaminophen (Acetaminophen 325 Mg Tab) 650 mg PO Q4H PRN PRN Reason: Pain or Fever Stop: 06/17/25 01:55 Last Admin: 05/18/25 18:00 Dose: 650 mg Aspirin (Aspirin 325 Mg Ectab) 325 mg PO DAILY SCARLETT Stop: 06/17/25 15:29 Last Admin: 05/19/25 09:14 Dose: 325 mg Atorvastatin Calcium (Atorvastatin 20 Mg Tab) 20 mg PO HS SCARLETT Stop: 06/17/25 20:59 Last Admin: 05/18/25 21:03 Dose: 20 mg Colchicine (Colchicine 0.6 Mg Tab) 0.6 mg PO BID SCARLETT Stop: 06/17/25 10:59 Last Admin: 05/19/25 09:13 Dose: 0.6 mg Levothyroxine Sodium (Levothyroxine Sodium 75 Mcg Tablet) 75 mcg PO DAILYBB SCARLETT Stop: 06/17/25 06:29 Last Admin: 05/19/25 06:10 Dose: 75 mcg Morphine Sulfate (Morphine Sulfate 10 Mg/0.5 Ml Udp) 5 mg PO Q1H PRN PRN Reason: Severe Pain (Scale 7, 8, 9,10) Stop: 06/01/25 16:08 Multivitamins (Multivitamin Tab) 1 tab PO HS SCARLETT Stop: 06/17/25 20:59 Last Admin: 05/18/25 21:03 Dose: 1 tab Nitroglycerin (Nitroglycerin Sl 0.4 Mg/Tab Tab) 0.4 mg SL Q5M PRN PRN Reason: Chest Pain Stop: 06/17/25 01:55 Polyethylene Glycol (Polyethylene (Miralax) 17 Gm Pack) 17 gm PO DAILY PRN PRN Reason: Constipation Stop: 06/17/25 01:55 Vitamin D (Cholecalciferol 125 Mcg (5,000 Units) Tab) 125 mcg PO HS SCARLETT Stop: 06/17/25 20:59 Last Admin: 05/18/25 21:03 Dose: 125 mcg PG Care Time/CCT Total # of Minutes Spent Total Time Spent with Patient: Total time spent is greater than 50% in coordination of care (as documented) at patient's floor/unit and/or counseling patient: [place]oding [place] [address] SUB INP/OBS CARE 3/50MIN Patient Type Established Medical Decision Making High Complexity Diagnoses NSTEMI (non-ST elevated myocardial infarction) I21.4 Pericardial effusion I31.39 Cardiac tamponade I31.4 Dyslipidemia, goal LDL below 70 E78.5
--- NOTE | 2025-05-19 14:15 | XCELERA ---
[id number] [email or web address]\[id number]
--- NOTE | 2025-05-19 15:31 | Discharge Summary ---
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 Pain started yesterday afternoon. Pain located in middle of the chest. When he takes deep breath pain radiates into his throat. He had some shortness of breath on exertion. He had an episode of fluttering of the heart. Denies any nausea. No dizziness. No sweating. Pain is about 3/10 by severity. Took nitro in ER did not help the pain but caused headache. Received morphine but seems not helped much. Pain is more or less constant. On exertion he had some shortness of breath. No blurred vision. No headache. No runny nose or sore throat. Having some dry cough. Appetite is okay. No abdominal pain. Normal bowel and bladder movements. Denies any blood in the stools or black stools. Denies any hematuria. Last Wednesday had some bug bites not sure if they are ticks. Currently afebrile. Patient is from [place]. Non-ST elevated [place] Presents with chest pain. Initial troponin 7733 and repeat is [address] changes in inferior leads Received aspirin and started on IV heparin Will follow serial cardiac enzymes and echo N.p.o. Telemetry Cardiac consult for further recommendations History of hyperlipidemia Continue home statin for now Will follow lipid profile Hypothyroidism On Synthyroid Will follow TSH Impaired fasting glucose Will check HbA1c levels Recent bug bite Will check Lyme screen DVT prophylaxis On IV heparin Disposition Telemetry Full code. 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 Started on heparin for NSTEMI and admitted to medicine. On medicine, hospitalist notified cardiology of ST changes on ECG with troponin of 7000, who in turn evaluated patient and sent to cardiac cath technician. slab lifting supervisor revealed small circumflex occlusion otherwise mild CAD. Found to have small to moderate pericardial effusion with concern for tamponade physiology, deferred drain placement due to small size. Started on colchicine and aspirin with improvement. On 05/19/2025 patient medically stable for discharge home. 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 Pain started yesterday afternoon. Pain located in middle of the chest. When he takes deep breath pain radiates into his throat. He had some shortness of breath on exertion. He had an episode of fluttering of the heart. Denies any nausea. No dizziness. No sweating. Pain is about 3/10 by severity. Took nitro in ER did not help the pain but caused headache. Received morphine but seems not helped much. Pain is more or less constant. On exertion he had some shortness of breath. No blurred vision. No headache. No runny nose or sore throat. Having some dry cough. Appetite is okay. No abdominal pain. Normal bowel and bladder movements. Denies any blood in the stools or black stools. Denies any hematuria. Last Wednesday had some bug bites not sure if they are ticks. Currently afebrile. Patient is from [place]. Past medical history as mentioned above. Past surgical history. Inguinal hernia repair. Social history. No smoking. Alcohol occasional. Family history. Father had heart valve repair. Sister had heart disease. Discharge Exam Gen: A&O 3 NAD HEENT: NCAT, EOMI, not icteric. External ears normal. No rhinorrhea. Moist mucous membranes. Neck: Supple, full range of motion, no observable masses, No meningeal sign. Lungs: No Respiratory distress. CV: RRR, no edema. Abdomen: Soft, nondistended, No rebound tenderness. MSK: No joint swelling, no redness. Skin: No rashes, petechiae, lesions. Normal color per patient. Neuro: Normal Gait, Grossly intact. Psych: Appropriate for situation. Updated Medication List Medication Instructions Recorded Confirmed Type atorvastatin 20 mg tablet 20 mg PO HS 05/17/25 05/17/25 History cholecalciferol (vitamin D3) 125 125 mcg PO HS 05/17/25 05/17/25 History mcg (5,000 unit) tablet (Vitamin D3) levothyroxine 75 mcg tablet 75 mcg PO DAILYBB 05/17/25 05/17/25 History multivitamin 1 tab PO HS 05/17/25 05/17/25 History omega-3 fatty acids 1,250 mg 2,500 mg PO HS 05/17/25 05/17/25 History capsule zinc acetate 50 mg (zinc) capsule 50 mg PO HS 05/17/25 05/17/25 History aspirin 325 mg tablet,delayed 325 mg PO DAILY 30 days #30 tabs 05/19/25 Rx release (Ecotrin) colchicine 0.6 mg tablet (Colcrys) 0.6 mg PO BID 14 days #28 tabs 05/19/25 Rx pantoprazole 40 mg granules 40 mg PO DAILY 4 weeks #30 ea 05/19/25 Rx delayed-release for susp in packet (Protonix) Hospital Stay Data Consultations 05/17/25 22:54 ED Decision to Admit Stat 05/18/25 08:00 Consult Cardiology Routine Procedures Performed Operation Date: 05/18/25 09:30 Actual Procedures s Pericardiocentesis - Toni Urbano MD p Cineradiography w/Routine Exam - Jasiel Browning DO p Cath, Left with Cors and Vent - Jasiel Browning DO Diagnostic Imagining Performed 05/18/25 09:11 CL Cath Imgs for PACS use only Stat Pending Results Patient Have Any Pending Studies at Discharge: Yes Discharge Instructions Given to Patient (Per Discharging Provider) Diagnoses: pericardial effusion, myocarditis, CAD Follow Ups: PCP, cardiology Incidental Findings: atelectasis 1. Please follow up with PCP, cardiology. 2. Stay hydrated! 3. Take medications as prescribed. Total Time Total Time Spent Total Time Spent (In Minutes): I spent a total of 45 minutes in direct patient care, including [id number] time with the patient and/or family, reviewing medical records, ordering and reviewing diagnostic tests, and coordinating care with other healthcare providers. This time includes: history taking, physical examination, medical decision making, counseling, ECG interpretation, imaging interpretation, lab interpretation, orders, and education, excluding time spent in the performance of separately billed services.
[2025-05-19 16:11] VITALS: BP 132/96; PULSE 97
--- NOTE | 2025-05-21 13:14 | Electrocardiogram Report ---
Test Reason : Blood Pressure : */* mmHG Vent. Rate : 68 BPM Atrial Rate : 68 BPM P-R Int : 168 ms QRS Dur : 96 ms QT Int : 432 ms P-R-T Axes : 55 17 36 degrees QTcB Int : 459 ms Normal sinus rhythm Normal ECG When compared with ECG of 18-May-2025 08:18, No significant change was found Confirmed by Armani Norman ([id number]) on 05/21/2025 1:14:28 PM Referred By: REFERRED SELF Confirmed By: Armani Norman
== END 2025-05-19 16:40 | disposition home or self-care (01) | DRG 281 ==
LOC: ED 20:47 → 4W 05-18 00:26